=== PATIENT | male | born 1965 | race Caucasian/White ===

== ENCOUNTER 2021-06-03 09:52 | Emergency (ER) | payer OTHER ==
--- NOTE | 2021-06-03 10:17 | EDM.PDOC ---
ED HPI GENERAL MEDICAL PROBLEM - General Chief Complaint: Upper Extremity Injury/Pain Stated Complaint: CRUSHED L THUMB W/LIFT GATE Time Seen by Provider: 06/03/21 09:56 Source of Information: Reports: Patient History Limitations: Reports: No Limitations - History of Present Illness INITIAL COMMENTS - FREE TEXT/NARRATIVE: Patient is a 55-year-old male who presents today for a left thumb crush injury. He had a lift gate from a truck smashed his thumb. He has pain only in the thumb area. He has 2 small lacerations to the area as well. Patient denies any other injuries denies any other medical complaints. left thumb Pain Score (Numeric/FACES): 7 - Related Data Allergies Allergy/AdvReac Type Severity Reaction Status Date / Time Penicillins Allergy Hives Verified 06/03/21 10:00 prochlorperazine Allergy Anaphylactic Verified 06/03/21 10:00 [From Compazine] Shock Home Meds: Home Meds . [No Known Home Meds] 06/03/21 [History] Past Medical History HEENT History: Reports: None Cardiovascular History: Reports: None Respiratory History: Reports: Asthma Gastrointestinal History: Reports: None Genitourinary History: Reports: None Musculoskeletal History: Reports: None Neurological History: Reports: None Psychiatric History: Reports: None Endocrine/Metabolic History: Reports: None Hematologic History: Reports: None Immunologic History: Reports: None Oncologic (Cancer) History: Reports: None Dermatologic History: Reports: None - Infectious Disease History Infectious Disease History: Reports: Chicken Pox, Novel Coronavirus - Past Surgical History Head Surgeries/Procedures: Reports: None HEENT Surgical History: Reports: None Cardiovascular Surgical History: Reports: None Respiratory Surgical History: Reports: None GI Surgical History: Reports: Cholecystectomy Male Surgical History: Reports: None Endocrine Surgical History: Reports: None Neurological Surgical History: Reports: None Musculoskeletal Surgical History: Reports: None Oncologic Surgical History: Reports: None Dermatological Surgical History: Reports: None Social & Family History - Family History Family Medical History: No Pertinent Family History - Tobacco Use Tobacco Use Status *Q: Never Tobacco User Second Hand Smoke Exposure: No - Caffeine Use Caffeine Use: Reports: None - Recreational Drug Use Recreational Drug Use: No Review of Systems - Review of Systems Review Of Systems: See Below Constitutional: Reports: No Symptoms Eyes: Reports: No Symptoms Ears: Reports: No Symptoms Nose: Reports: No Symptoms Mouth/Throat: Reports: No Symptoms Respiratory: Reports: No Symptoms Cardiovascular: Reports: No Symptoms GI/Abdominal: Reports: No Symptoms Genitourinary: Reports: No Symptoms Musculoskeletal: Reports: Hand Pain Skin: Reports: No Symptoms Neurological: Reports: No Symptoms Psychiatric: Reports: No Symptoms ED EXAM, GENERAL - Physical Exam Exam: See Below Exam Limited By: No Limitations General Appearance: Alert, WD/WN, No Apparent Distress Neck: Normal Inspection, Supple Respiratory/Chest: No Respiratory Distress Cardiovascular: Normal Peripheral Pulses Peripheral Pulses: 2+: Radial (L), Radial (R) GI/Abdominal: Normal Bowel Sounds, Soft, Non-Tender Back Exam: Normal Inspection Extremities: Other (Swelling to the left thumb 2 small lacerations less than 1 cm each) Neurological: Alert, Oriented, CN II-XII Intact, Normal Gait ED TRAUMA EXTREMITY PROCEDURES - Laceration/Wound Repair Left Digit - 1st (Thumb) Lac/Wound Length In cm: 1 Appearance: Superficial Distal NVT: Neuro & Vascular Intact Anesthetic Type: Local Local Anesthesia - Lidocaine (Xylocaine): 2% Plain Local Anesthetic Volume: 2cc Skin Prep: Providone-Iodine (Betadine) Saline Irrigation (cc's): 1,000 Exploration/Debridement/Repair: Wound Explored Closed With: Sutures Suture Size: 5-0 # of Sutures: 1 Suture Type: Simple Course - Vital Signs Last Recorded V/S: Last Vital Signs Temp 96.2 F L 06/03/21 09:57 Pulse 69 06/03/21 09:57 Resp 17 06/03/21 09:57 BP 153/83 H 06/03/21 09:57 Pulse Ox 98 06/03/21 09:57 - Orders/Labs/Meds Orders: Active Orders 24 hr Category Date Time Status Vaccines to be Administered [RC] PER UNIT ROUTINE Care 06/03/21 10:51 Ordered DME for Discharge [COMM] Stat Oth 06/03/21 10:51 Ordered Meds: Medications Discontinued Medications Generic Name Dose Route Start Last Admin Trade Name Freq PRN Reason Stop Dose Admin Diphtheria/Tetanus/Acell Pertussis 0.5 ml 06/03/21 10:51 Diphtheria,Pertussis(Acell),Tetanus Vaccine 0.5 Ml Syringe IM 06/03/21 10:52 .ONCE ONE Lidocaine 5 ml 06/03/21 10:51 Lidocaine 2% 5 Ml Sdv INJECT 06/03/21 10:52 ONETIME ONE - Re-Assessments/Exams Free Text/Narrative Re-Assessment/Exam: 06/03/21 10:53 What you are ordering finger splint Why you are ordering it tuft fx protection How it will benefit patient protection of fx How long is patient to use it 10-14days Departure - Departure Time of Disposition: 10:54 Disposition: Home, Self-Care 01 Condition: Good Clinical Impression: Closed fracture of tuft of distal phalanx of finger - Discharge Information *PRESCRIPTION DRUG MONITORING PROGRAM REVIEWED*: Not Applicable *COPY OF PRESCRIPTION DRUG MONITORING REPORT IN PATIENT PHIL: Not Applicable Instructions: Finger Fracture, Adult Forms: ED Department Discharge Additional Instructions: The following information is given to patients seen in the emergency department who are being discharged to home. This information is to outline your options for follow-up care. We provide all patients seen in our emergency department with a follow-up referral. The need for follow-up, as well as the timing and circumstances, are variable depending upon the specifics of your emergency department visit. If you don't have a primary care physician on staff, we will provide you with a referral. We always advise you to contact your personal physician following an emergency department visit to inform them of the circumstance of the visit and for follow-up with them and/or the need for any referrals to a consulting sp ecialist. The emergency department will also refer you to a specialist when appropriate. This referral assures that you have the opportunity for follow-up care with a specialist. All of these measure are taken in an effort to provide you with optimal care, which includes your follow-up. Under all circumstances we always encourage you to contact your private physician who remains a resource for coordinating your care. When calling for follow-up care, please make the office aware that this follow-up is from your recent emergency room visit. If for any reason you are refused follow-up, please contact the [facility] Emergency Department at and asked to speak to the emergency department charge nurse. Please follow up with your primary care physician. If you do not have a primary care physician, see below: [facility] [address] [place] [phone] [address] [place] [address] He was seen today for crush injury to your left thumb. You have small lacerations that we repaired. You have what is called a tuft fracture to the left thumb. We placed you in a finger splint that you should wear for the next 2 weeks. You can also return to have the sutures removed in 10 days. You can have the suture removed by your primary medical doctor or walk-in clinic if you cannot obtain follow-up to have it removed you can return to the ED. Sepsis Event Note (ED) - Evaluation Sepsis Screening Result: No Definite Risk - Focused Exam Vital Signs: Vital Signs Temp Pulse Resp BP Pulse Ox 06/03/21 09:57 96.2 F L 69 17 153/83 H 98 - My Orders Last 24 Hours: My Active Orders 06/03/21 10:51 Vaccines to be Administered [RC] PER UNIT ROUTINE DME for Discharge [COMM] Stat - Assessment/Plan Last 24 Hours: My Active Orders 06/03/21 10:51 Vaccines to be Administered [RC] PER UNIT ROUTINE DME for Discharge [COMM] Stat Plan: Patient is a 55-year-old male who presents today for for a left thumb crush injury. We will obtain x-ray provide pain control and reassess.
--- NOTE | 2021-06-03 10:33 | CR ---
INDICATION: Trauma. COMPARISON: None. TECHNIQUE: Three views of the left hand. FINDINGS: Normal osseous mineralization and alignment. Small well corticated ossific fragment at the palmar aspect of the base of the distal phalanx, thought to represent a sesamoid. Tiny ossified fragments at the ulnar aspect of the tuft and radial aspect of the base of the distal phalanx, could represent small fractures. Remaining osseous structures are intact. Soft tissue irregularity of the thumb, likely representing a laceration. No radiopaque foreign body. IMPRESSION: 1. Fairly well corticated ossific fragment at the palmar aspect of the base of the distal phalanx of the thumb, thought to represent a sesamoid. 2. Tiny ossific fragments at the ulnar aspect of the tuft of the thumb and radial aspect of the base of the distal phalanx of the thumb, could represent small fractures of uncertain acuity. 3. Probable soft tissue laceration of the thumb. Dictated by Ralph Alcantar MD @ 06/03/2021 10:31:59 AM Dictated by: Ralph Alcantar MD @ 06/03/2021 10:32:06 (Electronically Signed)
[2021-06-03] MEDS ORDERED: Diphtheria,Pertussis(Acell),Tetanus Vaccine 0.5 ML Syringe IM ONE (10:51)
[2021-06-03] MEDS ORDERED: Lidocaine 2% 5 ML SDV INJECT ONE (10:51)
[2021-06-03] MEDS ORDERED: Octyl 2-Cyanoacrylate 1 APPLIC TUBE TOP ONE (11:26)
== END 2021-06-03 11:31 | disposition home or self-care (01) ==
LOC: MW.ED 09:52
DX: S62.522A Displaced fracture of distal phalanx of left thumb, initial encounter for closed fracture (principal); Z23 Encounter for immunization; Z88.0 Allergy status to penicillin; Z88.8 Allergy status to other drugs, medicaments and biological substances; Z86.16 Personal history of COVID-19; W23.0XXA Caught, crushed, jammed, or pinched between moving objects, initial encounter
CPT/HCPCS: 12001; 73130; 90471; 90715; 99283; A9270